=== PATIENT | male | born 1950 | race Caucasian/White ===

== ENCOUNTER 2017-02-27 11:19 | Emergency (ER) | payer MEDICARE, OTHER ==
[2017-02-27 12:42] VITALS: BP 126/78
--- NOTE | 2017-02-27 14:47 | RAD ---
Indication: Left hand pain, dog bite. 4 views of left hand demonstrates no fracture. No other bone or joint abnormality is noted. IMPRESSION: No fracture of the left hand is noted.
[2017-02-27] MEDS ORDERED: Amoxicillin/Clavulanate TAB* 875 MG PO ONE (14:49)
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
== END 2017-02-27 15:25 | disposition home or self-care (01) ==
LOC: ED 11:19
DX: S61.451A Open bite of right hand, initial encounter (principal); W54.0XXA Bitten by dog, initial encounter; Y92.9 Unspecified place or not applicable
CPT/HCPCS: 99281; A9270-GY